=== PATIENT | male | born 1935 | race Caucasian/White ===

== ENCOUNTER 2023-01-01 14:16 | Inpatient (IN) | payer MEDICARE ==
[~2023-01-01] VITALS: Ht 177.8 cm; Wt 34.0 kg
[~2023-01-01 14:16] MED LIST: ATORVASTATIN CA20 M1 PO; BACLOFEN5 MG PO; CETIRIZINE HYDR10 MG PO; FAMOTIDINE20 M1 PO; GABAPENTIN100 M2 PO; LEVEMIR FL100 UNIT/1 SC; LEVOTHYROXINE100 MC1 PO; LISINOPRIL10 M1 PO; METOPROLOL SUCC25 M2 PO; ONDANSETRON4 MG SL; PANTOPRAZOLE SO40 MG PO; PIOGLITAZONE HC30 MG PO; VIBRA-TAB100 MG PO
[2023-01-01 14:20] VITALS: BP 92/48
[2023-01-01 15:01] LABS: BASO % 0.4 % (0.0-1.0); EOS % 0.2 % (1.0-4.0); HEMATOCRIT 28.3 % (42.0-52.0); LYMPH # 0.6 10*3/uL (1.3-4.4); LYMPH % 5.5 % (27.0-41.0); MEAN CELL VOLUME 91.3 fl (80.0-94.0); MEAN CORPUSCULAR HGB 29.7 pg (27.0-31.0); MEAN CORPUSCULAR HGB CONC 32.5 g/dl (33.0-37.0); MEAN PLATELET VOLUME 10.8 fl (9.6-12.3); MONO # 0.8 10*3/uL (0.1-1.0); MONO % 7.7 % (3.0-9.0); NEUT # 8.6 10*3/uL (2.3-7.9); PLATELET COUNT AUTOMATED 372 10*3/uL (130-400); RED CELL DISTRI WIDTH 13.9 % (0-14.5); WHITE BLOOD COUNT 10.1 10*3/uL (4.8-10.8)
[2023-01-01 15:13] LABS: ACT PARTIAL THROMBO TIME 27.5 SECONDS (20.0-32.1)
[2023-01-01 15:25] LABS: POTASSIUM 4.4 mmol/L (3.4-5.1); TOTAL PROTEIN 5.3 gm/dL (6.0-8.0)
[2023-01-01 15:30] VITALS: BP 111/55
[2023-01-01] MEDS ORDERED: PROMETHAZINE12.5 M5 PO (16:07)
[2023-01-01 19:55] VITALS: BP 115/91
[2023-01-01 21:00] VITALS: BP 120/71
[2023-01-01 21:54] VITALS: BP 129/77
[2023-01-01 22:07] VITALS: BP 143/66
[2023-01-02] VITALS (24 sets, daily range): BP systolic 70–145; BP diastolic 31–92
[2023-01-02 06:55] LABS: BASO % 0.4 % (0.0-1.0); EOS % 0.3 % (1.0-4.0); HEMATOCRIT 31.4 % (42.0-52.0); LYMPH # 0.6 10*3/uL (1.3-4.4); LYMPH % 5.4 % (27.0-41.0); MEAN CORPUSCULAR HGB 29.3 pg (27.0-31.0); MEAN CORPUSCULAR HGB CONC 32.2 g/dl (33.0-37.0); MONO # 0.8 10*3/uL (0.1-1.0); MONO % 6.8 % (3.0-9.0); NEUT # 9.6 10*3/uL (2.3-7.9); NEUT % 86.6 % (47.0-73.0); PLATELET COUNT AUTOMATED 397 10*3/uL (130-400); RED BLOOD COUNT 3.45 10*6/uL (4.50-5.90); RED CELL DISTRI WIDTH 14.1 % (0-14.5); WHITE BLOOD COUNT 11.1 10*3/uL (4.8-10.8)
[2023-01-02 07:23] LABS: POTASSIUM 4.4 mmol/L (3.4-5.1); TOTAL PROTEIN 5.4 gm/dL (6.0-8.0)
[2023-01-02 08:41] LABS: ACT PARTIAL THROMBO TIME 28.8 SECONDS (20.0-32.1); INTERNATIONAL NORM RATIO 1.1 (2.0-3.5)
[2023-01-02 08:47] LABS: POTASSIUM 4.7 mmol/L (3.4-5.1); TOTAL PROTEIN 5.5 gm/dL (6.0-8.0)
[2023-01-02 09:10] LABS: ARTERIAL BLOOD GAS PH 7.301 (7.35-7.45)
[2023-01-02 09:17] LABS: ABG BASE EXCESS -11.8 mmol/L (-2.0-2.0)
[2023-01-02 10:07] LABS: BILIRUBIN Negative (Negative); BLOOD 3+ (Negative); CLARITY Turbid (Clear); COLOR Orange (Yellow); GLUCOSE Negative (Negative); KETONE Trace (Negative); LEUKO ESTERASE 1+ (Negative); NITRITE Negative (Negative); UROBILINOGEN 0.2 E.U./dl (0.0-1.0)
[2023-01-02 11:16] LABS: BACTERIA 3+; RBC TNTC rbc/hpf (0-2); WBC 41-50 wbc/hpf (0-5)
[2023-01-02 12:14] LABS: HEMATOCRIT 29.2 % (42.0-52.0); MANUAL DIFF REFLEX YES; MEAN CELL VOLUME 90.4 fl (80.0-94.0); MEAN CORPUSCULAR HGB 29.7 pg (27.0-31.0); MEAN CORPUSCULAR HGB CONC 32.9 g/dl (33.0-37.0); PLATELET COUNT AUTOMATED 348 10*3/uL (130-400); RED BLOOD COUNT 3.23 10*6/uL (4.50-5.90); RED CELL DISTRI WIDTH 14.1 % (0-14.5); WHITE BLOOD COUNT 6.8 10*3/uL (4.8-10.8)
[2023-01-02 12:25] LABS: POTASSIUM 4.8 mmol/L (3.4-5.1); TOTAL PROTEIN 5.2 gm/dL (6.0-8.0)
[2023-01-02 12:28] LABS: ATYPICAL LYMPHS 2 % (0-0); BURR CELLS MODERATE; OVALOCYTES FEW; PLATELET SUFFICIENCY NORMAL (NORMAL); POLYCHROMASIA SLIGHT; SCHISTOCYTES FEW; TOTAL CELLS COUNTED 100 #CELLS; TOXIC GRANULATION SLIGHT; VACUOLATION OF NEUTROPHILS SLIGHT
[2023-01-02 12:47] LABS: ARTERIAL BLOOD GAS PH 7.391 (7.35-7.45); ARTERIAL BLOOD GAS PO2 112.7 (80-90)
[2023-01-02 12:48] LABS: ABG BASE EXCESS -8.5 mmol/L (-2.0-2.0)
[2023-01-02] MEDS ORDERED: NOVAPLUS AZITH500 MG IV (13:45)
[2023-01-02] MEDS ORDERED: ZOSYN 2.252.25 GM/51 IV (13:45)
== END 2023-01-02 14:45 | disposition short-term general hospital (02) | DRG 871 ==
LOC: ED 14:16 → EDHOLD 15:54 → 4E 16:21 → EDHOLD 16:21 → 4E 16:21 → ICCU 20:07 → EDHOLD 20:07 → 5E 21:17 → ICCU 01-02 07:55
PROVIDERS: Family Medicine; Internal Medicine; Student in an Organized Health Care Education/Training Program; ADMIT Family Medicine; ATTEND Family Medicine
PROC: 5A1935Z Respiratory Ventilation, Less than 24 Consecutive Hours (ICD-10-PCS; principal; 2023-01-02)
PROC: 0BH17EZ Insertion of Endotracheal Airway into Trachea, Via Natural or Artificial Opening (ICD-10-PCS; 2023-01-02)
PROC: 02HV33Z Insertion of Infusion Device into Superior Vena Cava, Percutaneous Approach (ICD-10-PCS; 2023-01-02)
PROC: B548ZZA Ultrasonography of Superior Vena Cava, Guidance (ICD-10-PCS; 2023-01-02)
PROC: 5A12012 Performance of Cardiac Output, Single, Manual (ICD-10-PCS; 2023-01-02)
DX: A41.9 Sepsis, unspecified organism (principal); E43 Unspecified severe protein-calorie malnutrition; J69.0 Pneumonitis due to inhalation of food and vomit; R65.21 Severe sepsis with septic shock; N17.0 Acute kidney failure with tubular necrosis; I46.9 Cardiac arrest, cause unspecified; E87.1 Hypo-osmolality and hyponatremia; N13.30 Unspecified hydronephrosis; N13.4 Hydroureter; C78.6 Secondary malignant neoplasm of retroperitoneum and peritoneum; J90 Pleural effusion, not elsewhere classified; E87.20 Acidosis, unspecified; E78.5 Hyperlipidemia, unspecified; E11.649 Type 2 diabetes mellitus with hypoglycemia without coma; I10 Essential (primary) hypertension; C80.1 Malignant (primary) neoplasm, unspecified; Z82.49 Family history of ischemic heart disease and other diseases of the circulatory system; Z80.52 Family history of malignant neoplasm of bladder; Z79.899 Other long term (current) drug therapy; Z87.19 Personal history of other diseases of the digestive system; Z68.24 Body mass index [BMI] 24.0-24.9, adult; Z79.4 Long term (current) use of insulin